=== PATIENT | female | born 1955 | race Two or more races ===

== ENCOUNTER 2017-11-19 07:19 | Outpatient (CLI) | payer OTHER | END 2017-11-19 07:27 | disposition home or self-care (01) | LOC: SONOGRAMA 07:19 | DX: E04.1 Nontoxic single thyroid nodule (principal) ==

== ENCOUNTER 2019-10-27 10:28 | Outpatient (CLI) | payer OTHER | END 2019-10-27 10:37 | disposition home or self-care (01) | LOC: LAB 10:28 | PROVIDERS: ATTEND Internal Medicine Sports Medicine | DX: R19.5 Other fecal abnormalities (principal); Z12.11 Encounter for screening for malignant neoplasm of colon; Z86.010 Personal history of colon polyps; R00.2 Palpitations; I11.9 Hypertensive heart disease without heart failure; E11.9 Type 2 diabetes mellitus without complications; E78.2 Mixed hyperlipidemia; E03.8 Other specified hypothyroidism ==

== ENCOUNTER 2019-11-18 09:41 | Outpatient (CLI) | payer OTHER | END 2019-11-18 09:59 | disposition home or self-care (01) | LOC: TOM 09:41 | PROVIDERS: ATTEND Internal Medicine Sports Medicine | DX: R19.5 Other fecal abnormalities (principal); Z86.010 Personal history of colon polyps; K56.600 Partial intestinal obstruction, unspecified as to cause; K57.00 Diverticulitis of small intestine with perforation and abscess without bleeding ==